=== PATIENT | female | born 1985 | race Caucasian/White ===

== ENCOUNTER 2020-10-13 02:02 | Emergency (ER) | payer OTHER ==
[2020-10-14 23:09] LABS: CHLAMYDIA TRACHOMATIS, NAA Negative (Negative); NEISSERIA GONORRHOEAE, NAA Negative (Negative)
== END 2020-10-13 05:15 | disposition home or self-care (01) ==
LOC: ER1 02:02
PROVIDERS: Physician Assistant
DX: N34.2 Other urethritis (principal); J02.9 Acute pharyngitis, unspecified; Z20.2 Contact with and (suspected) exposure to infections with a predominantly sexual mode of transmission; R06.00 Dyspnea, unspecified; F17.210 Nicotine dependence, cigarettes, uncomplicated
CPT/HCPCS: 81001; 84703; 86780; 87081; 87086; 87880; 96372; 99283; J0561; J0696